=== PATIENT | female | born 1950 | race Caucasian/White ===

== ENCOUNTER 2022-09-22 05:32 | Day surgery (SDC) | payer MEDICARE, BC ==
[2022-09-22] VITALS (12 sets, daily range): BP systolic 93–146; BP diastolic 40–85; PULSE 49–81; TEMP 97–98.2
[~2022-09-22] VITALS: Ht 165.1 cm; Wt 72.1 kg
[2022-09-22] MEDS ORDERED: MAGNESIUM PO (06:42)
--- NOTE | 2022-09-22 12:23 | NUR ---
1130 TO ROOM 221 FROM OR. ASSESSMENT COMPLETED AND PATIENT DENIES NEEDS AT THIS TIME
--- NOTE | 2022-09-22 14:14 | NUR ---
1415 PATIENT SITS UP IN BED DRINKING WATER. O2 OFF SAO2 99% ROOM AIR.
--- NOTE | 2022-09-22 14:52 | NUR ---
1450 PATIENT SITTING UP IN BED TALKING WITH FRIEND.
[2022-09-23] VITALS: BP 102/46; PULSE 68; TEMP 98.1
[2022-09-23 04:00] VITALS: BP 93/61; PULSE 97; TEMP 98.4
[2022-09-23 08:42] VITALS: BP 108/51; PULSE 65; TEMP 98.2
--- NOTE | 2022-09-23 08:45 | NUR ---
0830 MARX CATHETER REMOVED BY THIS NURSE. 10ML REMOVED FROM BALLOON AND INTACT. PT TOLERATED WELL WITH NO COMPLAINTS.
--- NOTE | 2022-09-23 10:30 | NUR ---
Initial visit; Patient thanked Panel Fitter for looking in on her, visiting and offering prayer for rapid and thorough recovery from her hysterectomy and repair. Patient very pleasant, Panel Fitter commented on her maynor smile which is inspiring.
== END 2022-09-23 12:45 | disposition home or self-care (01) ==
LOC: SDCO 05:32 → OB 11:30 → SDCO 09-23 12:45
DX: N81.3 Complete uterovaginal prolapse (principal); D25.9 Leiomyoma of uterus, unspecified; N39.3 Stress incontinence (female) (male)
CPT/HCPCS: OP; A4314; C1771; C1781; J0690; J1100; J1170; J1885; J2405; J2704; J3010; J7120